=== PATIENT | female | born 1950 | race Caucasian/White ===

== ENCOUNTER 2024-01-05 09:35 | Emergency (ER) | payer MEDICARE, SELFPAY ==
[2024-01-05 09:42] VITALS: BP 132/53; PULSE 71; RESP 18; TEMP 36.6; O2SAT 99; BMI 29.3
--- NOTE | 2024-01-05 10:37 | XR_ITS ---
Patient: SHANTELLE BRADLEY Facility:?[facility] Patient ID:?[id number] Site Patient ID:?[id number]. Site :?50 Study:?XRay-Shoulder Left -01/05/2024 11:15:49 AM Ordering Physician:Yenni Final Report: Indication: Shoulder pain after fall Technique: Three views of the left shoulder. Comparison: 07/21/2019, 06/29/2019 Findings: Osteopenia. Moderate degenerative changes of the left shoulder. No acute displaced fracture or malalignment. Impression: No acute displaced fracture or malalignment. Dictated by Herson Barragan MD @ 01/05/2024 11:32:10 AM Signed by:?Herson Barragan MD @01/05/2024 11:32:10 AM (Electronic Signature)
--- NOTE | 2024-01-05 10:37 | XR_ITS ---
Patient: SHANTELLE BRADLEY Facility:?[facility] Patient ID:?[id number] Site Patient ID:?[id number]. Site :?50 Study:?XRay-Chest Lt Ribs w/PA CXR-01/05/2024 11:14:48 AM Ordering Physician:Yenni Final Report: INDICATION: Injury with left-sided pain COMPARISON: There are no prior studies for comparison TECHNIQUE: A single view of the chest was acquired as well as 2 additional images of the left ribcage FINDINGS: TUBES AND LINES: None. HEART AND MEDIASTINUM: Enlarged heart. Tortuous aorta. Median sternotomy. LUNGS AND PLEURAL SPACES: The lungs appear normal.The pleural spaces are unremarkable. OSSEOUS STRUCTURES: Demineralized osseous structures, degenerative changes and scoliosis. No displaced rib fractures. Inpatients this demineralized, nondisplaced rib fractures are usually not visible by plain film. A rounded calcification in the abdomen is probably a gallstone. IMPRESSION: 1. No evidence of active pulmonary disease. Enlarged heart. No pneumothorax. Status post sternotomy. 2. No visible displaced rib fracture. Demineralized osseous structures, degenerative changes and scoliosis. 3. Calcified opacity in the right abdomen is probably a gallstone. Dictated by Merrill Garcia MD @ 01/05/2024 11:27:01 AM Signed by:?Merrill Garcia MD @01/05/2024 11:27:01 AM (Electronic Signature)
--- NOTE | 2024-01-05 11:23 | ED_ITS ---
HPI - Fall General Date Seen: 01/05/24 Chief Complaint: Fall/Minor Trauma Stated Complaint: Fell yesterday, L shoulder/ribs injury Time Seen by Provider: 01/05/24 09:49 Source: patient Mode of arrival: ambulatory Limitations: no limitations History of Present Illness HPI Narrative: Patient is a 73-year-old female presents to emergency department for left shoulder and left rib pain. She states she was tripped by her dog yesterday fall and her left shoulder and side. She states she knows for a fact that she did not hit her head. Is not currently on any blood thinners. Comes in today for left shoulder and left sided rib pain. States she has full range of motion of her arm other than she cannot lift her left shoulder due to the pain. Has also noticed pain to the left lateral ribs since was there is some pain with deep breaths. She has not noticed any bruising. Denies chest pain, numbness, weakness, headache, vision changes. no other concerns at this time Related Data Home Medications Medication Instructions Recorded Confirmed alendronate 70 mg tablet 70 mg PO 01/05/24 flecainide 100 mg tablet 100 mg PO BID 01/05/24 01/05/24 levothyroxine 50 mcg tablet 50 mcg PO DAILY 01/05/24 01/05/24 metoprolol succinate 25 mg 25 mg PO DAILY 01/05/24 01/05/24 tablet,extended release 24 hr rosuvastatin 10 mg tablet 10 mg PO QPM 01/05/24 01/05/24 Allergies Allergy/AdvReac Type Severity Reaction Status Date / Time No Known Drug Allergies Allergy Verified 01/05/24 09:48 Review of Systems Narrative: Pertinent symptoms were reviewed and were negative unless stated in HPI PFSH PFSH Social History Smoking Status: Never smoker Do you use any of these nicotine containing products: None Second hand tobacco smoke exposure: No How often do you have a drink containing alcohol: never How often do you have six or more drinks on one occasion: Never AUDIT-C Alcohol total score: 0 Non-prescribed substance use: denies use service: No Exam Narrative: Exam Narrative: Const: Well-nourished, Well-developed, in mild distress Eyes: PERRL, no conjunctival injection, and symmetrical lids HENT: Atraumatic external nose and ears. Moist mucous membranes. CVS: RRR, No murmurs or gallops. Peripheral pulses 2+ and equal in all extrem ities RESP: Unlabored respiratory effort. Clear to auscultation bilaterally. GI: Nontender/Nondistended, No rebound or guarding. MSK:Extremities w/o deformity, decreased active range of motion to left shoulder but normal passive range of motion. Normal active range of motion to rest of extremities. Tenderness noted to the anterior left shoulder and to the lateral ribs Skin: Warm, Dry. No rashes or lesions. Neuro: Normal Muscle tone, No focal neurological deficits. Psych: Awake, Alert, & Oriented x3. Appropriate mood and affect. Const: Vital Signs, click to edit/add: Vital Signs - 24 hr 01/05/24 09:42 Temperature 98 F Pulse Rate [Right Pulse Oximeter] 71 Respiratory Rate 18 Blood Pressure [Ri ght Upper Arm] 132/53 L Pulse Oximetry 99 Oxygen Delivery Me thod Room Air Course Vital Signs Vital signs: Initial Vital Signs Temperature 98 F 01/05/24 09:42 Temperature Source Temporal Artery Scan 01/05/24 09:42 Pulse Rate 71 01/05/24 09:42 Pulse Rhythm Regular 01/05/24 09:42 Respiratory Rate 18 01/05/24 09:42 Blood Pressure 132/53 L 01/05/24 09:42 Blood Pressure Mean 79 01/05/24 09:42 Blood Pressure Position Sitting 01/05/24 09:42 Pulse Oximetry 99 01/05/24 09:42 Oxygen Delivery Method Room Air 01/05/24 09:42 Vital Signs Temperature 98 F 01/05/24 09:42 Pulse Rate 71 01/05/24 09:42 Respiratory Rate 18 01/05/24 09:42 Blood Pressure 132/53 L 01/05/24 09:42 Pulse Oximetry 99 01/05/24 09:42 Oxygen Delivery Method Room Air 01/05/24 09:42 Temperature 98 F 01/05/24 09:42 Pulse Rate 71 01/05/24 09:42 Respiratory Rate 18 01/05/24 09:42 Blood Pressure 132/53 L 01/05/24 09:42 Pulse Oximetry 99 01/05/24 09:42 Oxygen Delivery Method Room Air 01/05/24 09:42 MDM - Fall MDM Narrative Medical decision making narrative: Patient is a 73-year-old female presenting for left shoulder and rib pain. We will do x-rays of the left ribs and left shoulder. For do not believe she needs imaging of her head her neck as she is adamant that she did not hit her head. She is not having pain anywhere else at this time. Patient does not want any pain medication at this time. The shortness of breath seems related to rib pain and not any other emergent intrathoracic abnormality. She is neurovascular intact at this time. X-rays show no concerning findings reviewed by myself and the radiologist. Imaging Data Left ribs x-ray: Attestation: I have reviewed the pertinent imaging results. Radiologist's impression: 1. No evidence of active pulmonary disease. Enlarged heart. No pneumothorax. Status post sternotomy. 2. No visible displaced rib fracture. Demineralized osseous structures, degenerative changes and scoliosis. 3. Calcified opacity in the right abdomen is probably a gallstone. Dictated by Merrill Garcia MD @ 01/05/2024 11:27:01 AM Left shoulder x-ra: Attestation: I have reviewed the pertinent imaging results. Radiologist's impression: No acute displaced fracture or malalignment. Dictated by Herson Barragan MD @ 01/05/2024 11:32:10 AM Discharge Plan Discharge Clinical Impression: Rib pain on left side Acute shoulder pain Qualifiers: Laterality: left Qualified Code(s): M25.512 - Pain in left shoulder Patient Disposition: Home, Self-Care Condition: Stable Instructions: Shoulder Pain (ED) Additional Instructions: Please injuries seem to be muscular in nature. Take Tylenol and ibuprofen for pain. If they persist follow-up with the primary care provider. Prescriptions: No Action alendronate 70 mg tablet 70 mg PO levothyroxine 50 mcg tablet 50 mcg PO DAILY flecainide 100 mg tablet 100 mg PO BID metoprolol succinate 25 mg tablet extended release 24 hr 25 mg PO DAILY rosuvastatin 10 mg tablet 10 mg PO QPM Follow Up/Referrals: Brynn Alva DO [Primary Care Provider] - Stand Alone Forms: [employer] Info Instructions
== END 2024-01-05 11:41 | disposition home or self-care (01) ==
PROVIDERS: Emergency Provider Student in an Organized Health Care Education/Training Program; PCP Family Medicine
DX: M25.512 Pain in left shoulder (principal); W01.0XXA Fall on same level from slipping, tripping and stumbling without subsequent striking against object, initial encounter
CPT/HCPCS: 71101; 73030; 99282; 99283